=== PATIENT | female | born 1945 | race Caucasian/White ===

== ENCOUNTER 2017-09-11 11:49 | Emergency (ER) | payer MEDICARE ==
[~2017-09-11] VITALS: Ht 165.1 cm; Wt 88.0 kg
[~2017-09-11 11:49] MED LIST: CLIN300; ELIQUIS5 MG PO; OMEPRAZOLE MAGN20 MG PO; Percocet 5-3251 EACH PO; Protonix40 MG PO; Synthroid112 MCG PO; ZESTORETIC 20-1 EACH PO
[2017-09-11] MEDS ORDERED: ASCO500 PO (12:01)
[2017-09-11] MEDS ORDERED: IRON240 MG PO (12:02)
[2017-09-11] MEDS ORDERED: Percocet 5-3251 EACH PO (12:59)
[2017-09-11] MEDS ORDERED: IBUP600 PO (12:59)
[2017-09-11] MEDS ORDERED: Zofran4 MG PO (12:59)
[2018-02-12] MEDS ORDERED: ACET500 PO (13:09)
== END 2017-09-11 14:31 | disposition home or self-care (01) ==
LOC: ER 11:49
DX: S82.001A Unspecified fracture of right patella, initial encounter for closed fracture (principal); Z88.0 Allergy status to penicillin; Z79.899 Other long term (current) drug therapy; I10 Essential (primary) hypertension; E03.9 Hypothyroidism, unspecified; K21.9 Gastro-esophageal reflux disease without esophagitis; Z87.891 Personal history of nicotine dependence; Z85.038 Personal history of other malignant neoplasm of large intestine; W06.XXXA Fall from bed, initial encounter
CPT/HCPCS: 29505; 73564; 96374; 96375; 99283; J1170; J2405

== ENCOUNTER 2018-02-13 07:38 | Day surgery (SDC) | payer MEDICARE ==
[~2018-02-13] VITALS: Ht 165.1 cm; Wt 91.2 kg
[~2018-02-13 07:38] MED LIST changes: +ACET500 PO; +ASCO500 PO; +IBUP600 PO; +IRON240 MG PO; +LISHYD2025 PO; +OMEP20ER PO; -OMEPRAZOLE MAGN20 MG PO; -ZESTORETIC 20-1 EACH PO; +Zofran4 MG PO
== END 2018-02-13 22:41 | disposition home or self-care (01) ==
LOC: ORSCMMR 07:38 → ORD 08:30 → ORSCMMR 08:30
PROVIDERS: Internal Medicine Gastroenterology
PROC: 0DBK8ZX Excision of Ascending Colon, Via Natural or Artificial Opening Endoscopic, Diagnostic (ICD-10-PCS; principal; 2018-02-13 08:30)
PROC: 0DBP8ZX Excision of Rectum, Via Natural or Artificial Opening Endoscopic, Diagnostic (ICD-10-PCS; principal; 2018-02-13 08:30)
DX: Z12.11 Encounter for screening for malignant neoplasm of colon (principal); K57.30 Diverticulosis of large intestine without perforation or abscess without bleeding; Z85.038 Personal history of other malignant neoplasm of large intestine; Z80.0 Family history of malignant neoplasm of digestive organs; I10 Essential (primary) hypertension; E03.9 Hypothyroidism, unspecified; Z87.891 Personal history of nicotine dependence; Z79.899 Other long term (current) drug therapy
CPT/HCPCS: 88305; J7030

== ENCOUNTER 2018-03-05 07:15 | Day surgery (SDC) | payer MEDICARE ==
[~2018-03-05] VITALS: Ht 165.1 cm; Wt 88.9 kg
[~2018-03-05 07:15] MED LIST changes: -LISHYD2025 PO; -OMEP20ER PO; +OMEPRAZOLE MAGN20 MG PO; +ZESTORETIC 20-1 EACH PO
[2018-03-06 03:52] LABS: BASOPHILS ABSOLUTE AUTO 0.01 K/mm3 (0.00-0.23); BASOPHILS PERCENT AUTO 0 % (0-2); EOSINOPHILS PERCENT AUTO 0 % (0-6); Hematocrit 29.3 % (33.0-51.0); Hemoglobin 9.9 g/dL (11.5-16.0); IMMATURE GRAN ABSOLUTE AUTO 0.05 K/mm3 (0.00-0.10); IMMATURE GRAN PERCENT AUTO 1 % (0-1); LYMPHOCYTES ABSOLUTE AUTO 0.51 K/mm3 (0.84-5.20); LYMPHOCYTES PERCENT AUTO 5 % (21-46); MONOCYTES ABSOLUTE AUTO 0.38 K/mm3 (0.16-1.47); MONOCYTES PERCENT AUTO 4 % (4-13); Mean Corpuscular HGB 31.8 pg (26.0-34.0); Mean Corpuscular HGB Conc 33.8 g/dL (31.5-36.5); Mean Corpuscular Volume 94 fL (80-100); Mean Platelet Volume 10.8 fL (9.1-12.4); NEUTROPHILS ABSOLUTE AUTO 8.59 K/mm3 (1.96-9.15); NEUTROPHILS PERCENT AUTO 90 % (41-73); Platelet Count 215 K/mm3 (150-400); RDW Coefficient Variation 12.6 % (11.7-14.2); RDW Standard Deviation 43.3 fL (35.1-46.3); Red Blood Cell Count 3.11 M/mm3 (3.80-5.20); White Blood Cell Count 9.54 K/mm3 (4.00-11.30)
[2018-03-06 04:12] LABS: Bun/Creatinine Ratio 26.7 (12.0-20.0); Calcium, Blood 9.7 mg/dL (8.5-10.1); Creatinine, Blood 1.61 mg/dL (0.40-1.00); Magnesium, Blood 1.5 mg/dL (1.6-2.4); Potassium, Blood 5.6 mmol/L (3.5-5.5)
[2018-03-06] MEDS ORDERED: ASPI325EC PO (06:21)
[2018-03-06] MEDS ORDERED: ROXICODONE5 MG PO (06:22)
== END 2018-03-07 12:37 | disposition home or self-care (01) ==
LOC: ORSCMMR 07:15 → ORD 11:00 → ORSCMMR 11:00 → SURS 15:07 → ORSCMMR 03-07 12:37
PROVIDERS: Orthopaedic Surgery
PROC: 0SRC0J9 Replacement of Right Knee Joint with Synthetic Substitute, Cemented, Open Approach (ICD-10-PCS; principal; 2018-03-05 11:00)
DX: M17.11 Unilateral primary osteoarthritis, right knee (principal); I10 Essential (primary) hypertension; Z87.891 Personal history of nicotine dependence; Z79.899 Other long term (current) drug therapy
CPT/HCPCS: 36415; 73560-RT; 80048; 83735; 85025; 88300; 97110; 97116; 97162; 97530; C1713; C1776; G8978; G8979; J0171; J0690; J0735; J1100; J1885; J2250; J2795; J3010; J7120

== ENCOUNTER 2018-10-01 06:03 | Day surgery (SDC) | payer MEDICARE ==
[~2018-10-01] VITALS: Ht 165.1 cm; Wt 89.8 kg
[~2018-10-01 06:03] MED LIST changes: +ASPI325EC PO; +ROXICODONE5 MG PO
--- NOTE | 2018-10-01 06:43 | NUR ---
[facility]TO [facility] ADMISSION STARTED TO UNIT.Ambulatory in Day Surgery History, Chart, Medications and Allergies reviewed before start of procedure.Lungs clear T/O to Auscultation. Patient confirms NPO status and agrees with scheduled surgery.
--- NOTE | 2018-10-01 19:13 | NUR ---
SHIFT SUMMARY PT HAS DONE WELL BUT STRUGGLES WITH HIGHER PAIN LEVELS. VOIDING, TOLERATING DIET, WORKED WELL WITH THERAPY.
[2018-10-02 04:05] LABS: BASOPHILS ABSOLUTE AUTO 0.01 K/mm3 (0.00-0.23); BASOPHILS PERCENT AUTO 0 % (0-2); EOSINOPHILS ABSOLUTE AUTO 0.02 K/mm3 (0.00-0.68); EOSINOPHILS PERCENT AUTO 0 % (0-6); Hematocrit 31.3 % (33.0-51.0); Hemoglobin 10.4 g/dL (11.5-16.0); IMMATURE GRAN ABSOLUTE AUTO 0.05 K/mm3 (0.00-0.10); IMMATURE GRAN PERCENT AUTO 1 % (0-1); LYMPHOCYTES ABSOLUTE AUTO 0.74 K/mm3 (0.84-5.20); LYMPHOCYTES PERCENT AUTO 8 % (21-46); MONOCYTES ABSOLUTE AUTO 0.58 K/mm3 (0.16-1.47); MONOCYTES PERCENT AUTO 6 % (4-13); Mean Corpuscular HGB 30.8 pg (26.0-34.0); Mean Corpuscular HGB Conc 33.2 g/dL (31.5-36.5); Mean Corpuscular Volume 93 fL (80-100); Mean Platelet Volume 10.7 fL (9.1-12.4); NEUTROPHILS ABSOLUTE AUTO 8.06 K/mm3 (1.96-9.15); NEUTROPHILS PERCENT AUTO 85 % (41-73); Platelet Count 204 K/mm3 (150-400); RDW Coefficient Variation 12.6 % (11.7-14.2); RDW Standard Deviation 42.5 fL (35.1-46.3); Red Blood Cell Count 3.38 M/mm3 (3.80-5.20); White Blood Cell Count 9.46 K/mm3 (4.00-11.30)
[2018-10-02 04:26] LABS: Bun/Creatinine Ratio 18.2 (12.0-20.0); Calcium, Blood 9.4 mg/dL (8.5-10.1); Creatinine, Blood 1.7 mg/dL (0.40-1.00); Magnesium, Blood 1.3 mg/dL (1.6-2.4); Potassium, Blood 5.2 mmol/L (3.5-5.5)
--- NOTE | 2018-10-02 06:31 | NUR ---
RESTED WITH EASE THIS SHIFT. MEDICATED FOR BREAKTHROUGH PAIN X1. DRESSING TO LEFT KNEE IS C/D/I, WITH CRYOTHERAPY IN PLACE. DENIES FURTHER NEEDS OR WANTS AT THIS TIME. SAFETY MEASURES IN PLACE. WILL CONTINUE TO MONITOR.
[2018-10-02] MEDS ORDERED: ACET500 PO (08:34)
[2018-10-02] MEDS ORDERED: ROXICODONE5 MG PO (08:34)
[2018-10-02] MEDS ORDERED: ELIQUIS2.5 MG PO (08:35)
--- NOTE | 2018-10-02 11:06 | NUR ---
D/C RX & INSTRUCTIONS GIVEN TO PT AT THIS TIME. IV D/C WNL.
--- NOTE | 2018-10-02 12:06 | NUR ---
Pt is doing much better and may go home today encouraged pt. and offered prayers for her .
--- NOTE | 2018-10-02 15:10 | NUR ---
10/02/18 1510 Iris Toledo VERIFICATIONS, CHART EDITS.
== END 2018-10-02 13:19 | disposition home or self-care (01) ==
LOC: ORSCMMR 06:03 → EDSTATUS 07:30 → PRE IP 07:30 → SURS 11:08 → ORSCMMR 10-02 13:19 → SURS 10-02 13:19
PROVIDERS: Orthopaedic Surgery
PROC: 0SRD0J9 Replacement of Left Knee Joint with Synthetic Substitute, Cemented, Open Approach (ICD-10-PCS; principal; 2018-10-01 07:30)
DX: M17.12 Unilateral primary osteoarthritis, left knee (principal); I12.9 Hypertensive chronic kidney disease with stage 1 through stage 4 chronic kidney disease, or unspecified chronic kidney disease; N18.9 Chronic kidney disease, unspecified; E03.9 Hypothyroidism, unspecified; Z87.891 Personal history of nicotine dependence; Z79.899 Other long term (current) drug therapy; E66.01 Morbid (severe) obesity due to excess calories; Z68.38 Body mass index [BMI] 38.0-38.9, adult
CPT/HCPCS: 36415; 73560-LT; 80048; 83735; 85025; 88300; 97110; 97116; 97162; 97530; C1713; C1776; J0171; J0690; J0735; J1100; J1170; J1885; J2250; J2370; J2405; J2795; J3010; J7120

== ENCOUNTER 2022-02-23 12:52 | Inpatient (IN) | payer MEDICARE ==
[~2022-02-23] VITALS: Ht 165.1 cm; Wt 80.8 kg
[~2022-02-23 12:52] MED LIST changes: +ELIQUIS2.5 MG PO
[2022-02-23 13:57] LABS: BASOPHILS ABSOLUTE AUTO 0.05 K/mm3 (0.00-0.23); BASOPHILS PERCENT AUTO 1 % (0-2); EOSINOPHILS ABSOLUTE AUTO 0.12 K/mm3 (0.00-0.68); EOSINOPHILS PERCENT AUTO 1 % (0-6); Hematocrit 36.7 % (33.0-51.0); Hemoglobin 12.3 g/dL (11.5-16.0); IMMATURE GRAN ABSOLUTE AUTO 0.11 K/mm3 (0.00-0.10); IMMATURE GRAN PERCENT AUTO 1 % (0-1); LYMPHOCYTES PERCENT AUTO 11 % (21-46); MONOCYTES ABSOLUTE AUTO 0.77 K/mm3 (0.16-1.47); MONOCYTES PERCENT AUTO 9 % (4-13); Mean Corpuscular HGB 30.6 pg (26.0-34.0); Mean Corpuscular HGB Conc 33.5 g/dL (31.5-36.5); Mean Corpuscular Volume 91 fL (80-100); Mean Platelet Volume 11.7 fL (9.1-12.4); NEUTROPHILS ABSOLUTE AUTO 6.62 K/mm3 (1.96-9.15); NEUTROPHILS PERCENT AUTO 77 % (41-73); Platelet Count 248 K/mm3 (150-400); RDW Coefficient Variation 12.3 % (11.7-14.2); RDW Standard Deviation 41.1 fL (35.1-46.3); Red Blood Cell Count 4.02 M/mm3 (3.80-5.20); White Blood Cell Count 8.57 K/mm3 (4.00-11.30)
[2022-02-23 14:28] LABS: Albumin, Blood 3.9 g/dL (3.4-5.0); Bilirubin, Total 0.6 mg/dL (0.1-1.0); Calcium, Blood 13.9 mg/dL (8.5-10.1); Creatinine, Blood 1.86 mg/dL (0.40-1.00); Globulin, Blood 4.1 g/dL (2.2-4.0)
[2022-02-23] MEDS ORDERED: LISI20 PO (22:39)
[2022-02-23] MEDS ORDERED: ASPI81CH PO (22:40)
[2022-02-24 04:27] LABS: Hematocrit 30.5 % (33.0-51.0); Hemoglobin 10.2 g/dL (11.5-16.0)
[2022-02-24 04:52] LABS: Albumin, Blood 3.2 g/dL (3.4-5.0); Bilirubin, Total 0.5 mg/dL (0.1-1.0); Bun/Creatinine Ratio 34.6 (12.0-20.0); Creatinine, Blood 1.62 mg/dL (0.40-1.00); Globulin, Blood 3.2 g/dL (2.2-4.0); Potassium, Blood 4.4 mmol/L (3.5-5.5); Total Protein, Blood 6.4 g/dL (6.4-8.2)
[2022-02-24 04:57] LABS: Calcium, Blood 11.7 mg/dL (8.5-10.1)
--- NOTE | 2022-02-24 06:04 | NUR ---
SHIFT SUMMARY Assumed care of pt at 2220 as an ER admit. A/Ox4. Reports no CP/pressure. Slept for about 6 hours. Ambulates to the bathroom with a SBA. Resp WNL, SR on tele -'s. VSS. Strong +2 pulses t/o. Will report to jah FLEMING.
--- NOTE | 2022-02-24 18:25 | NUR ---
END OF SHIFT NOTE PT A&O X4. VSS. SPO2 > 92% ON RA. MONITOR SHOWING NSR, HR 60s-70s. PT C/O NAUSEA THIS AM & AFTERNOON, MEDICATED W/ PRN MEDICATION PER EMAR X3 THIS SHIFT W/ LITTLE IMPROVEMENT. PT W/ 1 SMALL EPISODE OF CLEAR EMESIS W/ "OATMEAL CHUNKS" REPORTED BY PT. PT SLEEPING THIS AFTERNOON, WAKING UP, REPORTING FEELING "VERY WEAK." PT REQUIRING 1 PERSON ASSISTANCE FOR AMBULATION. NS GTT INFUSING PER ORDERS.
[2022-02-25 04:11] LABS: BASOPHILS ABSOLUTE AUTO 0.03 K/mm3 (0.00-0.23); BASOPHILS PERCENT AUTO 1 % (0-2); EOSINOPHILS ABSOLUTE AUTO 0.09 K/mm3 (0.00-0.68); EOSINOPHILS PERCENT AUTO 2 % (0-6); Hematocrit 27.3 % (33.0-51.0); IMMATURE GRAN ABSOLUTE AUTO 0.02 K/mm3 (0.00-0.10); IMMATURE GRAN PERCENT AUTO 0 % (0-1); LYMPHOCYTES ABSOLUTE AUTO 0.56 K/mm3 (0.84-5.20); LYMPHOCYTES PERCENT AUTO 11 % (21-46); MONOCYTES ABSOLUTE AUTO 0.36 K/mm3 (0.16-1.47); MONOCYTES PERCENT AUTO 7 % (4-13); Mean Corpuscular HGB 30.4 pg (26.0-34.0); Mean Corpuscular Volume 92 fL (80-100); Mean Platelet Volume 11.8 fL (9.1-12.4); NEUTROPHILS PERCENT AUTO 79 % (41-73); Platelet Count 170 K/mm3 (150-400); RDW Coefficient Variation 12.1 % (11.7-14.2); RDW Standard Deviation 41.1 fL (35.1-46.3); Red Blood Cell Count 2.96 M/mm3 (3.80-5.20); White Blood Cell Count 5.06 K/mm3 (4.00-11.30)
[2022-02-25 05:01] LABS: Albumin, Blood 2.9 g/dL (3.4-5.0); Anion Gap 8 mmol/L (6-16); Blood Urea Nitrogen 32 mg/dL (8-24); Bun/Creatinine Ratio 23.4 (12.0-20.0); CO2, Blood 18 mmol/L (21-32); Calcium, Blood 9.8 mg/dL (8.5-10.1); Chloride, Blood 115 mmol/L (98-108); Creatinine, Blood 1.37 mg/dL (0.40-1.00); Glomerular Filtration Rate 40 (60-); Glucose, Blood 101 mg/dL (70-99); Phosphorus, Blood 1.6 mg/dL (2.5-4.9); Potassium, Blood 4.8 mmol/L (3.5-5.5); Sodium, Blood 141 mmol/L (136-145)
--- NOTE | 2022-02-25 05:45 | NUR ---
SHIFT SUMMARY A/Ox4. Several episodes of dry heaving, relieved by PRN nausea medications. Was able to drink a juice and eat a cracker this shift. VSS, on RA and satting over 95%. NS running per emar. Will report to dayshift BERNADETTE.
--- NOTE | 2022-02-25 13:54 | NUR ---
TRANSFER TO MEDICAL PT MADE MEDICAL NO TELE STATUS. PT A&O X4. VSS. SPO2 > 92% ON RA. MONITOR SHOWING NSR, HR 60s-70s PRIOR TO TELE DC. PT W/ NAUSEA THIS AM, MEDICATED W/ PRN ANTI NAUSEA MEDICATION PER EMAR X2 THIS SHIFT W/ PT REPORT OF IMPROVEMENT. NS GTT INFUSING PER ORDERS, S/L FOR TRANSFER TO NEW RM. NS GTT TO BE RECONNECTED. PT TAKEN UP TO MEDICAL FLOOR RM 355 BY PCT IN WHEELCHAIR W/ BELONGINGS @ APPROX 1345 AFTER THIS RN GIVING ACCEPTING MEDICAL FLOOR RN REPORT.
--- NOTE | 2022-02-25 19:28 | NUR ---
LATE ENTRY/PCU TRANSFER 1400: RECEIVED REPORT FROM ROSAMARIA FLEMING. PT TO ROOM 355. PLACED IN BED, MADE COMFORTABLE & ORIENTED TO UNIT ROUTINE. VSS.
--- NOTE | 2022-02-25 19:31 | NUR ---
SHIFT SUMMARY A&O X 4. VSS. PT USES CALL LIGHT TO USE RESTROOM. 1 PERSON STDBY ASSIST FOR MOBILITY. DENIES PAIN OR ANY DISCOMFORT. HAS A GOOD STRONG COUGH D/T RESOLVING PNUEMONIA. APPETITE IS GOOD.
--- NOTE | 2022-02-26 04:51 | NUR ---
SLEPT WELL UP TO BATHROOM WITH HANDS FREE SUPERVISION FROM NURSING STAFF. A&OX4, NO COMPLAINTS OF DISCOMFORT OR NAUSEA. OCCASIONAL COUGH WHICH EBONI STATES IS MUCH IMPROVED. RECEIVED SODIUM PHOSPHATE IV WITHOUT COMPLICATION. NO SIGNIFICANT EVENTS OVERNIGHT
[2022-02-26] MEDS ORDERED: ELIQUIS5 M2 PO (10:26)
[2022-02-28 15:09] LABS: A/G RATIO 1.1 (0.7-1.7); ALBUMIN 3.4 g/dL (2.9-4.4); ALPHA-1-GLOBULIN 0.2 g/dL (0.0-0.4); ALPHA-2-GLOBULIN 0.9 g/dL (0.4-1.0); BETA GLOBULIN 0.8 g/dL (0.7-1.3); M-SPIKE Not Observed g/dL (Not Observed); PROTEIN, TOTAL, SERUM 6.4 g/dL (6.0-8.5)
== END 2022-02-26 11:35 | disposition home or self-care (01) | DRG 643 ==
LOC: ER 12:52 → PCU 22:22 → MEDS 02-25 13:58
PROVIDERS: Family Medicine; Student in an Organized Health Care Education/Training Program; ADMIT Internal Medicine
DX: E21.0 Primary hyperparathyroidism (principal); I26.99 Other pulmonary embolism without acute cor pulmonale; Z66 Do not resuscitate; K21.9 Gastro-esophageal reflux disease without esophagitis; E03.9 Hypothyroidism, unspecified; I12.9 Hypertensive chronic kidney disease with stage 1 through stage 4 chronic kidney disease, or unspecified chronic kidney disease; R11.0 Nausea; N18.32 Chronic kidney disease, stage 3b; R63.4 Abnormal weight loss; Z96.653 Presence of artificial knee joint, bilateral; Z68.29 Body mass index [BMI] 29.0-29.9, adult; Z92.21 Personal history of antineoplastic chemotherapy; Z92.3 Personal history of irradiation; Z87.891 Personal history of nicotine dependence; Z85.038 Personal history of other malignant neoplasm of large intestine; Z85.048 Personal history of other malignant neoplasm of rectum, rectosigmoid junction, and anus; Z87.01 Personal history of pneumonia (recurrent); Z88.0 Allergy status to penicillin; Z79.01 Long term (current) use of anticoagulants; Z79.899 Other long term (current) drug therapy
CPT/HCPCS: 36415; 71045; 71260; 74177; 76536; 80053; 80069; 82306; 82330; 82652; 83735; 83970; 84165; 85014; 85018; 85025; 93306; 96361-59; 96374-59; 99285-25; A9270; J0630; J1650; J2405; J2550; J2765; J3475; J3489; J7030; J7060; Q9967

== ENCOUNTER → 2023-02-14 | Outpatient (CLI) | payer MEDICARE ==
[~2023-02-14] MED LIST changes: +ASPI81CH PO; +ELIQUIS5 M2 PO; +LISI20 PO
[2023-02-14 23:10] LABS: Campylobacter Sp Not Detected (NOT DETECT); Enteroaggregative E. coli-EAEC Detected (NOT DETECT)
[2023-02-14 23:11] LABS: Adenovirus F 40/41 Not Detected (NOT DETECT); Astrovirus Not Detected (NOT DETECT); Cryptosporidium Not Detected (NOT DETECT); Cyclospora Cayetanensis Not Detected (NOT DETECT); E. Coli O157 Not Detected (NOT DETECT); Entamoeba Histolytica Not Detected (NOT DETECT); Enteropathogenic E. coli-EPEC Not Detected (NOT DETECT); Enterotoxigenic E. coli-ETEC Not Detected (NOT DETECT); Giardia Lamblia Not Detected (NOT DETECT); Norovirus GI/GII Not Detected (NOT DETECT); Plesiomonas Shigelloides Not Detected (NOT DETECT); Rotavirus A Not Detected (NOT DETECT); Salmonella Sp Not Detected (NOT DETECT); Sapovirus Not Detected (NOT DETECT); Shiga Toxin-prod E. coli-STEC Not Detected (NOT DETECT); Shigella/Enteroin E. coli-EIEC Not Detected (NOT DETECT); Vibrio Cholerae Not Detected (NOT DETECT); Vibrio Sp Not Detected (NOT DETECT); Yersinia Enterocolitica Not Detected (NOT DETECT)
== END | disposition home or self-care (01) ==
LOC: LAB SHORT 07:45 → LAB 07:45
PROVIDERS: Nurse Practitioner Family
DX: R19.7 Diarrhea, unspecified (principal)
CPT/HCPCS: 87507

== ENCOUNTER → 2023-05-19 | Outpatient (CLI) | payer MEDICARE ==
[2023-05-19 11:47] LABS: Source, Urine Clean Catch
[2023-05-19 18:23] LABS: Appearance, Urine Cloudy (Clear); Bilirubin, Urine Neg (Neg); Blood, Urine 5+ (Neg); Color, Urine Yellow (P-Yellow); Glucose Qualitative, Urine Neg (Neg); Ketones, Urine Neg (Neg); Leukocyte Esterase, Urine 3+ (Neg); Nitrite, Urine Neg (Neg); Protein, Urine 3+ (Neg); Urobilinogen, Urine NORM (Normal)
[2023-05-19 18:33] LABS: White Blood Cells, Urine TNTC /hpf (0-5)
[2023-05-19 18:34] LABS: Bacteria Many /hpf; Red Blood Cells, Urine 25-50 /hpf (0-2); Squamous Epithelial Cells Few /hpf (Few)
== END | disposition home or self-care (01) ==
LOC: LAB SHORT 10:50 → LAB 10:50
PROVIDERS: Nurse Practitioner Family
DX: R30.0 Dysuria (principal)
CPT/HCPCS: 81001; 87077; 87086; 87186

== ENCOUNTER 2024-01-23 18:52 | Emergency (ER) | payer MEDICARE ==
[~2024-01-23] VITALS: Ht 165.1 cm; Wt 86.2 kg
[2024-01-23 18:57] VITALS: BP 185/98
[2024-01-23] MEDS ORDERED: Ketorolac Tromethamine 10 MG Tab PO ONE (20:55)
== END 2024-01-23 22:55 | disposition home or self-care (01) ==
LOC: ER 18:52
DX: M79.672 Pain in left foot (principal); S90.32XA Contusion of left foot, initial encounter; I10 Essential (primary) hypertension; E03.9 Hypothyroidism, unspecified; K21.9 Gastro-esophageal reflux disease without esophagitis; X58.XXXA Exposure to other specified factors, initial encounter; Z96.653 Presence of artificial knee joint, bilateral; Z79.890 Hormone replacement therapy; Z88.0 Allergy status to penicillin; Z79.899 Other long term (current) drug therapy
CPT/HCPCS: 93926; 93971; 99283-25; A9270

== ENCOUNTER 2024-02-04 20:01 | Emergency (ER) | payer MEDICARE ==
[~2024-02-04] VITALS: Ht 165.1 cm; Wt 86.2 kg
[2024-02-04] MEDS ORDERED: Colchicine 0.6 MG TAB PO ONE ×2 (23:05→23:40)
[2024-02-04 23:39] LABS: BASOPHILS ABSOLUTE AUTO 0.05 K/mm3 (0.00-0.23); BASOPHILS PERCENT AUTO 0 % (0-2); EOSINOPHILS ABSOLUTE AUTO 0.01 K/mm3 (0.00-0.68); EOSINOPHILS PERCENT AUTO 0 % (0-6); Hematocrit 31.8 % (33.0-51.0); Hemoglobin 10.3 g/dL (11.5-16.0); IMMATURE GRAN ABSOLUTE AUTO 0.14 K/mm3 (0.00-0.10); IMMATURE GRAN PERCENT AUTO 1 % (0-1); LYMPHOCYTES ABSOLUTE AUTO 0.65 K/mm3 (0.84-5.20); LYMPHOCYTES PERCENT AUTO 6 % (21-46); MONOCYTES ABSOLUTE AUTO 1.11 K/mm3 (0.16-1.47); MONOCYTES PERCENT AUTO 10 % (4-13); Mean Corpuscular HGB 29.2 pg (26.0-34.0); Mean Corpuscular HGB Conc 32.4 g/dL (31.5-36.5); Mean Corpuscular Volume 90 fL (80-100); Mean Platelet Volume 10.2 fL (9.1-12.4); NEUTROPHILS PERCENT AUTO 83 % (41-73); Platelet Count 293 K/mm3 (150-400); RDW Coefficient Variation 12.9 % (11.7-14.2); RDW Standard Deviation 42.9 fL (35.1-46.3); Red Blood Cell Count 3.53 M/mm3 (3.80-5.20); White Blood Cell Count 11.36 K/mm3 (4.00-11.30)
[2024-02-04] MEDS ORDERED: RX Prepack 6 Tabs Oxycodone 5mg UD ONE (23:40)
[2024-02-04] MEDS ORDERED: Cefdinir 300 MG Cap PO ONE (23:40)
[2024-02-04] MEDS ORDERED: COLCHICINE0.6 MG PO (23:41)
[2024-02-04] MEDS ORDERED: CEPH500 PO (23:42)
[2024-02-04 23:50] VITALS: BP 191/77
== END 2024-02-05 | disposition home or self-care (01) ==
LOC: ER 20:01
PROVIDERS: Emergency Medicine
DX: L53.9 Erythematous condition, unspecified (principal); D64.9 Anemia, unspecified; I10 Essential (primary) hypertension; E03.9 Hypothyroidism, unspecified; K21.9 Gastro-esophageal reflux disease without esophagitis; Z87.891 Personal history of nicotine dependence; Z79.899 Other long term (current) drug therapy; Z88.0 Allergy status to penicillin
CPT/HCPCS: 73630; 84550; 85025; 99284-25; A9270

== ENCOUNTER → 2024-08-24 | Outpatient (CLI) | payer MEDICARE ==
[~2024-08-24] MED LIST changes: +CEPH500 PO; +COLCHICINE0.6 MG PO
[2024-08-24 12:11] LABS: BASOPHILS ABSOLUTE AUTO 0.05 K/mm3 (0.00-0.23); BASOPHILS PERCENT AUTO 1 % (0-2); EOSINOPHILS ABSOLUTE AUTO 0.07 K/mm3 (0.00-0.68); EOSINOPHILS PERCENT AUTO 1 % (0-6); Hemoglobin 11.8 g/dL (11.5-16.0); IMMATURE GRAN ABSOLUTE AUTO 0.12 K/mm3 (0.00-0.10); IMMATURE GRAN PERCENT AUTO 2 % (0-1); LYMPHOCYTES ABSOLUTE AUTO 0.51 K/mm3 (0.84-5.20); LYMPHOCYTES PERCENT AUTO 9 % (21-46); MONOCYTES ABSOLUTE AUTO 0.76 K/mm3 (0.16-1.47); MONOCYTES PERCENT AUTO 13 % (4-13); Mean Corpuscular HGB Conc 33.7 g/dL (31.5-36.5); Mean Corpuscular Volume 86 fL (80-100); Mean Platelet Volume 10.2 fL (9.1-12.4); NEUTROPHILS ABSOLUTE AUTO 4.23 K/mm3 (1.96-9.15); NEUTROPHILS PERCENT AUTO 74 % (41-73); Platelet Count 247 K/mm3 (150-400); RDW Coefficient Variation 13.8 % (11.7-14.2); RDW Standard Deviation 43.1 fL (35.1-46.3); Red Blood Cell Count 4.07 M/mm3 (3.80-5.20); White Blood Cell Count 5.74 K/mm3 (4.00-11.30)
[2024-08-24 12:22] LABS: Albumin, Blood 4.3 g/dL (3.4-5.0); Albumin/Globulin Ratio 1.1 (0.8-1.8); Bilirubin, Total 0.5 mg/dL (0.1-1.0); Bun/Creatinine Ratio 16.1 (12.0-20.0); Calcium, Blood 9.5 mg/dL (8.5-10.1); Creatinine, Blood 1.8 mg/dL (0.40-1.00); Globulin, Blood 3.9 g/dL (2.2-4.0); Potassium, Blood 4.4 mmol/L (3.5-5.5); Total Protein, Blood 8.2 g/dL (6.4-8.2)
== END | disposition home or self-care (01) ==
LOC: LAB 12:06 → LAB SHORT 12:06
PROVIDERS: Emergency Medicine
DX: R03.0 Elevated blood-pressure reading, without diagnosis of hypertension (principal)
CPT/HCPCS: 80053; 83880; 84484; 85025

== ENCOUNTER → 2025-06-12 | Outpatient (CLI) | payer MEDICARE | LOC: LAB 12:17 | DX: E03.9 Hypothyroidism, unspecified (principal); I48.92 Unspecified atrial flutter ==

== ENCOUNTER 2025-06-13 07:09 | Emergency (ER) | payer MEDICARE | END 2025-06-13 13:00 | disposition home or self-care (01) | LOC: ER 07:09 | DX: I48.91 Unspecified atrial fibrillation (principal); M54.17 Radiculopathy, lumbosacral region; K21.9 Gastro-esophageal reflux disease without esophagitis; E03.9 Hypothyroidism, unspecified; I10 Essential (primary) hypertension; Z87.891 Personal history of nicotine dependence; Z79.899 Other long term (current) drug therapy; Z88.0 Allergy status to penicillin ==